=== PATIENT | female | born 1975 ===

== ENCOUNTER 2021-03-06 08:05 | Day surgery (SDC) | payer OTHER ==
[~2021-03-06] VITALS: Ht 152.4 cm; Wt 73.3 kg
[2021-03-06] VITALS (11 sets, daily range): BP systolic 92–123; BP diastolic 62–81; PULSE 54–74; TEMP 96.9
[2021-03-06] MEDS ORDERED: ZOVIRAX 200MG200 MG PO (08:54)
[2021-03-06] MEDS ORDERED: BENTYL 20MG20 MG/TAB PO (08:54)
--- NOTE | 2021-03-06 14:34 | NUR ---
Pt returned to [facility]. Ambulated to recliner in bay. Spouse in room. VS remained stable. Pt tolerated water and sprite. Pt reported feeling some nausea and gas like pains, but reported she wants to go home and rest. IV removed. Pt remained in our care 4 hours per drs orders. Discharge teaching completed, pt verbalized understanding. Pt given sick back and discussed ways to relieve gas pains. Taken via wheelchair to private vehicle for dc home with spouse driving.
== END 2021-03-06 14:34 | disposition home or self-care (01) ==
LOC: SDCO 08:05
DX: K80.51 Calculus of bile duct without cholangitis or cholecystitis with obstruction (principal); K83.8 Other specified diseases of biliary tract; K31.89 Other diseases of stomach and duodenum; K21.9 Gastro-esophageal reflux disease without esophagitis; R93.5 Abnormal findings on diagnostic imaging of other abdominal regions, including retroperitoneum; Z20.822 Contact with and (suspected) exposure to COVID-19; Z79.890 Hormone replacement therapy; Z90.710 Acquired absence of both cervix and uterus; Z79.899 Other long term (current) drug therapy; Z90.89 Acquired absence of other organs
CPT/HCPCS: C1769; J2405; J2704; J3010; J7030; J7120; Q9967